=== PATIENT | male | born 1990 | race Caucasian/White ===

== ENCOUNTER 2020-07-09 14:12 | Emergency (ER) | payer OTHER, SELFPAY ==
[2020-07-09 14:42] VITALS: BP 134/69; PULSE 74; RESP 18; TEMP 37.5; O2SAT 98; BMI 19.9
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
== END 2020-07-09 15:06 | disposition home or self-care (01) ==
PROVIDERS: Emergency Provider Emergency Medicine
DX: S13.4XXA Sprain of ligaments of cervical spine, initial encounter (principal); V43.53XA Car driver injured in collision with pick-up truck in traffic accident, initial encounter; Y93.89 Activity, other specified; Y92.414 Local residential or business street as the place of occurrence of the external cause; Y99.9 Unspecified external cause status
CPT/HCPCS: 99283

== ENCOUNTER 2022-03-29 06:25 | Emergency (ER) | payer MEDICAID, SELFPAY ==
--- NOTE | ~2022-03-29 | CT_ITS ---
EXAMINATION: CT FOOT WITHOUT CONTRAST, RIGHT CLINICAL INFORMATION: Right heel swelling COMPARISON: None TECHNIQUE: 2 mm thin axial and reformatted 2 mm thin sagittal and coronal images of right foot were obtained. This CT examination was performed using dose optimization techniques as appropriate, variously including the following: *Automated exposure control *Adjustment of mA and/or kV according to patient size (this includes techniques or standardized protocols for targeted exams where dose is matched to indication/reason for exam; i.e. extremities or head) *Use of iterative reconstruction technique DLP: 184 mGy-cm FINDINGS: There is a nondisplaced calcaneal heal fracture with minimal displacement. No additional fracture seen. The subtalar joint and ankle mortise is intact. There is moderate medial soft tissue swelling. CT/CT foot RT wo IV con IMPRESSION: Nondisplaced calcaneal heel fracture with minimal displacement and moderate medial soft tissue swelling.
--- NOTE | ~2022-03-29 | XR_ITS ---
EXAMINATION: XR FOOT, RIGHT CLINICAL INFORMATION: Pain COMPARISON: None TECHNIQUE: AP, lateral, and oblique views of the right foot. FINDINGS: Bones of the midfoot are well aligned. No tarsal, metatarsal or phalangeal fracture. No significant degenerative changes. No focal soft tissue swelling. No radiopaque foreign body. No gross ankle joint effusion. XR/XR foot RT 2V IMPRESSION: Unremarkable radiographs of the right foot.
[2022-03-29 06:40] VITALS: BP 123/60; PULSE 79; RESP 20; TEMP 36.6; O2SAT 98; BMI 19.8
--- NOTE | 2022-03-29 07:21 | ED_ITS ---
HPI - Extremity Injury (Lower) General Chief Complaint: Extremity Injury, Lower Stated Complaint: Right heel pain Time Seen by Provider: 03/29/22 07:20 Source: patient and family () Mode of arrival: ambulatory Limitations: no limitations History of Present Illness HPI Narrative: 31-year-old male who presents emergency department for evaluation of injury to his right foot that occurred 2 days prior. Patient states that he climbed up on a counter which is approximately 4 ft above floor in order to get something on high shelf. He states that he jumped off a counter and his foot landed on a toy doll. Developed immediate pain in his foot. He states that since the injuries had difficulty walking secondary to pain in his foot. Patient states that his foot is swollen. He denies numbness or weakness. Denies any other injury from jumping. Related Data Previous Rx's Medication Instructions Recorded cyclobenzaprine 10 mg tablet 10 mg PO TID PRN muscle spasm #10 07/09/20 tabs ibuprofen 600 mg tablet 600 mg PO Q8H PRN pain #10 tabs 07/09/20 lidocaine 5 % topical patch 1 patch topical DAILY #15 ea 07/09/20 (Lidoderm) morphine 15 mg immediate release 15 mg PO Q4-6H PRN pain #14 tabs 03/29/22 tablet Allergies Allergy/AdvReac Type Severity Reaction Status Date / Time No Known Allergies Allergy Verified 03/29/22 06:43 Review of Systems Review of Systems: Yes all other systems are reviewed and are negative [facility] Past Medical History [facility] Narrative: Past medical history: None. Social history: He is . He denies tobacco, alcohol and drug use. Social History Social History Advance Directives: No Physical Exam Vital Signs: Vital Signs: Last Vital Signs Temp 97.9 F 03/29/22 07:47 Pulse 65 03/29/22 07:47 Resp 18 03/29/22 07:47 BP 110/64 03/29/22 07:47 Pulse Ox 100 03/29/22 07:47 O2 Del Method 03/29/22 07:47 BMI result Body Mass Index 19.8 Vital signs were stable General: Awake, alert, male patient, pleasant, cooperative he does not appear to be in distress. Extremities: The patient has significant soft tissue swelling of his right foot and right heel with diffuse tenderness palpation of these areas but increased tenderness palpation of his right heel. His extremities neurovascularly intact, there is no erythema or increased warmth noted. Medications Administered Discontinued Medications Generic Name Dose Route Start Last Admin Trade Name Mallika PRN Reason Stop Dose Admin Ibuprofen 600 mg 03/29/22 08:07 03/29/22 08:13 Ibuprofen 600 Mg Tablet PO 03/29/22 08:08 600 mg ONCE STA Administration Morphine Sulfate 15 mg 03/29/22 08:07 03/29/22 08:13 Morphine Sulfate Immed Release 15 Mg Tablet PO 03/29/22 08:08 15 mg ONCE STA Administration Medical Decision Making Medical Decision Making [facility] Narrative: 31-year-old male who presents emergency department for evaluation of right foot pain x2 days, the pain occurred after he jumped off a 4 ft counter and landed on a toy doll. Patient's exam did reveal diffuse soft tissue swelling of his foot with increased swelling over the heel. Patient's foot was neurovascular intact. Plain x-rays of the right foot were from triage. Radiology interpreted these studies is negative however I am concerned that there may be some fracture lines in the patient's heel. Therefore I ordered CT scan of the right foot to evaluate for possible heel fracture 1011: CT scan of the patient's foot was reviewed by me in the patient does have calcaneus fracture. This is nondisplaced. Radiology reading is in agreement. I did discuss this with the patient. Patient's foot and ankle wrapped with 4 layers of cast padding and a posterior ortho glass splint just above the ankle was applied. The patient was given crutches. The patient was advised to take Tylenol and ibuprofen for his pain and for pain not relieved by these 2 medications he was prescribed morphine 15 mg every 4-6 hours as needed. The patient was advised to call our orthopedic provider on Wednesday and follow-up with the orthopedic providers in 1 week for re-evaluation. I told patient that he will need to be placed in a cast 4-6 weeks and he should be nonweightbearing. Differential Diagnosis Differential diagnosis includes was not limited to foot fracture, calcaneus fracture, contusion, sprain Independent Interpretation I performed an independent interpretation of an: Plain X-Ray and CT Scan Interpretation: My independent interpretation of the patient's plain film x-rays is consistent with a calcaneus fracture. My independent interpretation of the patient's CT scan of the foot is nondisplaced calcaneus fracture. Radiology Impression Discussion of test interpretation with radiology: I have reviewed the radiologist's reading. Radiologist Impression: CT foot RT wo IV con IMPRESSION: Nondisplaced calcaneal heel fracture with minimal displacement and moderate medial soft tissue swelling.? Dictated By: Estevan De Jesus MD Signed By:Electronically signed by Estevan De Jesus MD 03/29/22 [id number] Discharge Plan Discharge Clinical Impression: Calcaneus fracture, right Qualifiers: Encounter type: initial encounter Fracture type: closed Fracture alignment: nondisplaced Patient Disposition: Home, Self-Care Instructions: Calcaneal Fracture (ED) Additional Instructions: Your x-rays are consistent broken bone/fracture of your heel (calcaneus bone). Do not put any weight on your heel pain Do not get the splint wet. The splint is good for 1-2 weeks. You will need to be in a cast for 4-6 weeks. Call our orthopedic providers on Wednesday for follow-up within 1 week. Take ibuprofen 200 mg pills, 2 pills every 6 hours as needed for pain. Take Tylenol (acetaminophen) 2 pills every 4-6 hours as needed for pain. For pain not relieved by ibuprofen or Tylenol take morphine 15 mg pills, 1 pill every 4 hours as needed for pain. This medication will make you sleepy, do not drive or work while taking this medication. Morphine is a narcotic medication and can be addicting. If you are concerned about addiction you can ask the pharmacist for less pills or do not get this prescription filled. Follow-up with your doctor in 2 days. Please return to the emergency department if your symptoms get worse or if you develop any symptoms that are concerning to you. Prescriptions: New morphine 15 mg tablet 15 mg PO Q4-6H PRN (Reason: pain) Qty: 14 0RF Rx Instructions: Patient may request partial fill; Partial Fill upon patient request. No Action cyclobenzaprine 10 mg tablet 10 mg PO TID PRN (Reason: muscle spasm) Qty: 10 0RF ibuprofen 600 mg tablet 600 mg PO Q8H PRN (Reason: pain) Qty: 10 0RF lidocaine [Lidoderm] 5 % adhesive patch,medicated 1 patch topical DAILY Qty: 15 0RF Rx Instructions: leave on most painful area for up to 12 hrs Referrals: Meliton Gilliam MD [Physician] - 1 week (Non displaced right calcaneus fracture)
[2022-03-29 07:47] VITALS: BP 110/64; PULSE 65; RESP 18; TEMP 36.6; O2SAT 100
[2022-03-29] MEDS: Ibuprofen 600 MG TABLET PO (08:13)
[2022-03-29] MEDS: Morphine Sulfate Immed Release 15 MG TABLET PO (08:13)
--- NOTE | 2022-03-29 10:26 | MHC.EDTECH ---
Posterior splint with extra padding to heel applied to right foot per Dr Higuera.
== END 2022-03-29 10:33 | disposition home or self-care (01) ==
PROVIDERS: Emergency Provider Emergency Medicine Emergency Medical Services
DX: S92.001A Unspecified fracture of right calcaneus, initial encounter for closed fracture (principal); M79.671 Pain in right foot; Y29.XXXA Contact with blunt object, undetermined intent, initial encounter; Y93.9 Activity, unspecified; Y92.9 Unspecified place or not applicable; Y99.9 Unspecified external cause status; Z79.899 Other long term (current) drug therapy
CPT/HCPCS: 73620; 73700; 99284

== ENCOUNTER → 2022-04-02 09:31 | Outpatient (BNVA) | payer MEDICAID, SELFPAY | PROVIDERS: Visit Provider Physician Assistant | DX: S92.001A Unspecified fracture of right calcaneus, initial encounter for closed fracture (principal) | CPT/HCPCS: 29405; 99202 ==

== ENCOUNTER → 2022-04-07 15:12 | Outpatient (BNVA) | payer MEDICAID, SELFPAY | PROVIDERS: Visit Provider Physician Assistant | DX: S92.001D Unspecified fracture of right calcaneus, subsequent encounter for fracture with routine healing (principal) | CPT/HCPCS: 99212 ==

== ENCOUNTER 2022-05-01 16:44 | Outpatient (REF) | payer MEDICAID, SELFPAY ==
--- NOTE | ~2022-05-01 | XR_ITS ---
EXAMINATION: XR FOOT, RIGHT CLINICAL INFORMATION: Fracture COMPARISON: Previous x-ray and CT 03/29/2022 TECHNIQUE: AP, lateral, and oblique views of the right foot. FINDINGS: Nondisplaced calcaneal heel fracture is difficult to appreciate by x-ray. Joint spaces are normal. Sort tissues are normal. XR/XR foot RT min 3V IMPRESSION: Nondisplaced calcaneal heel fracture difficult to appreciate by x-ray.
== END 2022-05-01 16:45 | disposition home or self-care (01) ==
LOC: HO.HOSX 16:44
PROVIDERS: Visit Provider Physician Assistant
DX: S92.011D Displaced fracture of body of right calcaneus, subsequent encounter for fracture with routine healing (principal); X58.XXXD Exposure to other specified factors, subsequent encounter
CPT/HCPCS: 73630; 99212

== ENCOUNTER 2022-05-22 12:46 | Outpatient (REF) | payer MEDICAID, SELFPAY | END 2022-05-22 12:47 | disposition home or self-care (01) | LOC: HO.HOSX 12:46 | PROVIDERS: Visit Provider Physician Assistant | DX: Z13.89 Encounter for screening for other disorder (principal) ==

== ENCOUNTER 2022-06-22 10:01 | Outpatient (REF) | payer MEDICAID, SELFPAY | END 2022-06-22 10:02 | disposition home or self-care (01) | LOC: HO.HOSX 10:01 | PROVIDERS: Visit Provider Physician Assistant | DX: Z13.89 Encounter for screening for other disorder (principal) ==

== ENCOUNTER 2023-02-08 14:57 | Outpatient (AMB) | payer MEDICAID, SELFPAY ==
--- NOTE | 2023-02-08 15:00 | A.OFFVIS_ITS ---
Intake Vital Signs 02/08/23 15:05 Height 5 ft 8 in Weight 131 lb BMI 19.9 BP 131/70 Blood Pressure Location Rt brachial Position Sitting Pulse 78 Intake Visit Reasons: Abscess left ear/keloid? Intake Note: Patient referred for abscess ? keloid on Lt ear. Has been present for 2yrs. C/o pain, tenderness with touch. Industrial Engineer Required: No Accompanied by: Self / Same As Patient Allergies No Known Allergies Allergy (Verified 02/08/23 15:06) HPI HPI Comments History of Present Illness Details Patient presents for evaluation of a left postauricular keloid/abscess. He was seen at the ER referred here for further evaluation. Patient states he has had marked improvement during the last few days. The swelling and discomfort have both improved significantly. He was not given any antibiotics at the time of ER visit. 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 Patient states as noted above that this has significantly decreased in size over the last couple days. Assessment & Plan Assessment & Plan (1) Abscess of postauricular region: Code(s): L02.811 - Cutaneous abscess of head [any part, except face] Plan Current plan is continue conservative therapy. Patient was given script for antibiotics, warm compresses to the area, and will see me few days time for follow-up or p.r.n.. We will attempt conservative therapy but if symptoms progress or worsen, he may need formal I&D. Medications: New cephalexin 500 mg PO TID 30 caps 0RF Coding Level of Care Code New Pt Level 4 (66786) Diagnoses Abscess of postauricular region L02.811
[2023-02-08 15:05] VITALS: BP 131/70; PULSE 78; BMI 19.9
== END 2023-02-08 15:10 | disposition home or self-care (01) ==
PROVIDERS: Visit Provider Surgery
DX: L02.811 Cutaneous abscess of head [any part, except face] (principal)
CPT/HCPCS: 99204

== ENCOUNTER → 2023-02-08 14:57 | Outpatient (BNVA) | payer MEDICAID, SELFPAY | PROVIDERS: Visit Provider Surgery | DX: L02.811 Cutaneous abscess of head [any part, except face] (principal) | CPT/HCPCS: 99202 ==

== ENCOUNTER 2023-02-23 14:59 | Outpatient (AMB) | payer MEDICAID, SELFPAY ==
[2023-02-23 15:00] VITALS: BP 114/60; PULSE 50; BMI 19.8
--- NOTE | 2023-02-23 15:00 | A.OFFVIS_ITS ---
Intake Vital Signs 02/23/23 15:00 Height 5 ft 8 in Weight 130 lb BMI 19.8 BP 114/60 Blood Pressure Location Rt brachial Position Sitting Pulse 50 Intake Visit Reasons: Keloid Lt post ear Intake Note: This patient was referred by NANCY Randhawa, for an assessment for keloid of left posterior ear. Patient c/o: reports no complaints at this time. 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 It spontaneously drained a few days ago and now is completely healed over. 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 Assessment & Plan Assessment & Plan (1) Abscess of postauricular region: Code(s): L02.811 - Cutaneous abscess of head [any part, except face] Plan Patient has been given local instructions, completed antibiotic course, and will follow-up p.r.n. Coding Level of Care Code Est Pt Level 3 (72601) Diagnoses Abscess of postauricular region L02.811
== END 2023-02-23 15:08 | disposition home or self-care (01) ==
PROVIDERS: Referring Provider Internal Medicine Geriatric Medicine; Visit Provider Surgery
DX: L02.811 Cutaneous abscess of head [any part, except face] (principal)
CPT/HCPCS: 99213

== ENCOUNTER → 2023-02-23 14:59 | Outpatient (BNVA) | payer MEDICAID, SELFPAY | PROVIDERS: Referring Provider Internal Medicine Geriatric Medicine; Visit Provider Surgery | DX: Z48.817 Encounter for surgical aftercare following surgery on the skin and subcutaneous tissue (principal); Z87.2 Personal history of diseases of the skin and subcutaneous tissue | CPT/HCPCS: 99212 ==